=== PATIENT | female | born 1950 | race African-American/Black ===

== ENCOUNTER 2022-06-29 14:41 | Emergency (ER) | payer OTHER ==
[~2022-06-29] VITALS: Ht 162.6 cm; Wt 74.6 kg
[2022-06-29 14:58] VITALS: BP 152/61
--- NOTE | 2022-06-29 15:02 | NUR ---
Note undone in EDM - 06/29/22 at 1726 by PHSEP 72YO FEMALE PT BIB DAUGHTER C/O BACK AND R HAND PAIN XTODAY. REPORTS MECH FALL AFTER PINCHING SIDE OF R 5TH DIGIT W/ FOLDABLE STOOL. +BLOODTHINNERS(WARFARIN) -HEADINJURY -LOC. SKIN AVULSION ON FINGER NOTED, NO ACTIVE BLEEDING .BACK W/O VISIBLE INJURY OR DEFORMITY, TIGHT PAIN ON MOVEMENT, NON TENDER . PT AAOX4, AMB W/ ASSIST. 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 HX:HTN, HLD, DIABETES, MITRAL VALVE, ARTHRITIS , ANXIETY NKA
--- NOTE | 2022-06-29 15:09 | NUR ---
PT WHEELCHAIR ASSISTED TO BED 8
--- NOTE | 2022-06-29 15:20 | NUR ---
72YO FEMALE PT BIB DAUGHTER C/O BACK AND R HAND PAIN XTODAY. REPORTS MECH FALL AFTER PINCHING SIDE OF R 5TH DIGIT W/ FOLDABLE STOOL. +BLOODTHINNERS(WARFARIN) -HEADINJURY -LOC. SKIN AVULSION ON FINGER NOTED, NO ACTIVE BLEEDING .BACK W/O VISIBLE INJURY OR DEFORMITY, TIGHT PAIN ON MOVEMENT, NON TENDER . PT AAOX4, AMB W/ ASSIST. 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 HX:HTN, HLD, DIABETES, MITRAL VALVE, ARTHRITIS , ANXIETY NKA
[2022-06-29] MEDS ORDERED: ACETAMINOPHEN EXTRA STRENGTH 500 MG TAB PO ONE (15:35)
--- NOTE | 2022-06-29 15:37 | NUR ---
PT TAKEN TO XRAY VIA WHEELCHAIR
[2022-06-29] MEDS ORDERED: ACETAMINOPHEN EXTRA STRENGTH 500 MG TAB ONE (15:39)
--- NOTE | 2022-06-29 15:59 | NUR ---
PT BROUGHT BACK VIA WHEELCHAIR
[2022-06-29] MEDS ORDERED: ACET-10509 PO (17:00)
[2022-06-29 17:21] VITALS: BP 137/51
[2022-06-29] MEDS ORDERED: LID5T TP (17:46)
--- NOTE | 2022-06-29 17:50 | NUR ---
Patient discharged with v/s stable. Written and verbal after care instructions FOR FALL PREVENTION AND CONTUSION given and explained. Patient alert, oriented and verbalized understanding of instructions. Ambulatory with by caregiver. All questions addressed prior to discharge. ID band removed. Patient advised to follow up with PMD. Rx of TYLENOL XTRA STRENGTH AND LIDODERM PATCH given. Opportunity to ask questions provided and answered.
--- NOTE | 2022-06-29 17:51 | NUR ---
The patient's care was reviewed and supervised by Lia Schneider RN.
== END 2022-06-29 17:50 | disposition home or self-care (01) ==
LOC: MED 14:41
DX: S60.221A Contusion of right hand, initial encounter (principal); S34.105A Unspecified injury to L5 level of lumbar spinal cord, initial encounter; I10 Essential (primary) hypertension; E11.9 Type 2 diabetes mellitus without complications; E78.5 Hyperlipidemia, unspecified; F41.9 Anxiety disorder, unspecified; Z79.4 Long term (current) use of insulin; Z79.899 Other long term (current) drug therapy; Z98.890 Other specified postprocedural states; W18.30XA Fall on same level, unspecified, initial encounter; Y93.89 Activity, other specified; Y92.89 Other specified places as the place of occurrence of the external cause; Y99.8 Other external cause status
CPT/HCPCS: 72110; 72170; 73130; 99284

== ENCOUNTER 2022-10-15 21:05 | Emergency (ER) | payer OTHER, MEDICAID ==
[~2022-10-15] VITALS: Ht 162.6 cm; Wt 71.7 kg
[~2022-10-15 21:05] MED LIST: ACET-10509 PO; LID5T TP
[2022-10-15 21:15] VITALS: BP 101/65; PULSE 70; RESP 16; TEMP 97.6; O2SAT 97
--- NOTE | 2022-10-15 21:15 | NUR ---
to bed ambulatory
--- NOTE | 2022-10-15 21:27 | NUR ---
RECEIVED IN BED 11 WITH C/O LACERATION TO LEFT 2NG DIGIT WHICH OCCURED WHILE CUTTING A PLANT APPROX 20 MINUTES AGO.
--- NOTE | 2022-10-15 22:29 | NUR ---
Dr. Kerr examining patient.
[2022-10-15] MEDS ORDERED: LIDOCAINE MPF 1% 5 ML ONE (22:54)
[2022-10-15] MEDS ORDERED: LIDOCAINE 1% 500 MG/ 50 ML VIAL INJ ONE (22:55)
--- NOTE | 2022-10-15 23:03 | NUR ---
DR ROY AT BEDSIDE, SUTURING
[2022-10-15] MEDS ORDERED: BACITRACIN OINT 500 UNITS/GM PKT TP ONE ×2 (23:22→23:25)
[2022-10-15] MEDS ORDERED: BACTO TP (23:23)
[2022-10-15 23:35] VITALS: BP 101/65; PULSE 70; RESP 16; TEMP 97.6; O2SAT 97
--- NOTE | 2022-10-15 23:35 | NUR ---
DIGIT SPLINTED AND DRESSED. Patient discharged with v/s stable. Written and verbal after care instructions given and explained. Patient verbalized understanding. Ambulatory with steady gait. All questions addressed prior to discharge. Advised to follow up with PMD.
== END 2022-10-15 23:35 | disposition home or self-care (01) ==
LOC: MED 21:05
DX: S61.211A Laceration without foreign body of left index finger without damage to nail, initial encounter (principal); I11.0 Hypertensive heart disease with heart failure; E11.9 Type 2 diabetes mellitus without complications; Z79.4 Long term (current) use of insulin; Z79.899 Other long term (current) drug therapy; W26.8XXA Contact with other sharp object(s), not elsewhere classified, initial encounter; Y93.89 Activity, other specified; Y92.89 Other specified places as the place of occurrence of the external cause; Y99.8 Other external cause status
CPT/HCPCS: 12002; 90471; 90715; 99283; J2001